=== PATIENT | female | born 1930 | race Caucasian/White ===

== ENCOUNTER 2019-05-08 14:09 | Observation (INO) | payer OTHER ==
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
[2019-05-08] MEDS ORDERED: morphine CARPU-JECT 2 MG/1 ML DISP.SYRIN IVPUSH ONE (17:09)
[2019-05-08 18:30] LABS: EPI CELLS 23.3 /HPF (0-5/HPF); HYALINE CASTS 19 /lpf (0-8); PH,URINE 6.5 (5.0-8.0); URINE APPEARANCE CLOUDY; URINE BACTERIA 1295.8 /hpf (NEGATIVE); URINE BILIRUBIN NEGATIVE (NEGATIVE); URINE COLOR YELLOW; URINE GLUCOSE (UA) NEGATIVE (NEGATIVE); URINE KETONE TRACE (NEGATIVE); URINE LEUK ESTERASE 1+ (NEGATIVE); URINE NITRITE NEGATIVE (NEGATIVE); URINE PROTEIN 3+ (NEGATIVE); URINE RBC 212 /hpf (0-4); URINE UROBILINOGEN 0.2 mg/dL (0.2-1.0); URINE WBC 16 /hpf (0-5)
[2019-05-08] MEDS ORDERED: MORPHINE SULFATE 2 MG/ML VIAL ONE (18:37)
[2019-05-08 19:05] LABS: BASO % 1.3 % (0-2.0); HEMATOCRIT 37.1 % (32.4-45.2); HEMOGLOBIN 12.9 GM/dL (10.7-15.3); LYMPH % 7.3 % (8-40); MCH 30.3 pg (25.7-33.7); MCHC 34.7 g/dl (32.0-36.0); MEAN CELL VOLUME 87.5 fl (80-96); MEAN PLT VOLUME 8.7 fl (7.5-11.1); MONO % 5.4 % (3.8-10.2); PLATELET COUNT 242 K/MM3 (134-434); RBC 4.24 M/mm3 (3.60-5.2); RDW 12.7 % (11.6-15.6); WHITE BLOOD COUNT 13.1 K/mm3 (4.0-10.0)
[2019-05-08 19:37] LABS: PLATELET ESTIMATE NORMAL
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
[2019-05-08 20:16] LABS: ALBUMIN 3.4 g/dl (3.4-5.0); BILIRUBIN,TOTAL 0.4 mg/dL (0.2-1); CALCIUM 9.2 mg/dL (8.5-10.1); CREATININE 0.8 mg/dL (0.55-1.3); POTASSIUM 4.1 mmol/L (3.5-5.1); TOT PROT 6.8 g/dl (6.4-8.2)
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
[2019-05-08 23:35] VITALS: BMI 27.2
[2019-05-08] MEDS: ACETAMINOPHEN 325 MG TABLET (FP) PO PRN (23:53)
[2019-05-09 05:43] VITALS: TEMP 98
[2019-05-09 06:42] LABS: HEMATOCRIT 35.3 % (32.4-45.2); HEMOGLOBIN 12.4 GM/dL (10.7-15.3); MCH 30.6 pg (25.7-33.7); MEAN CELL VOLUME 87.4 fl (80-96); MEAN PLT VOLUME 8.4 fl (7.5-11.1); PLATELET COUNT 212 K/MM3 (134-434); RBC 4.04 M/mm3 (3.60-5.2); RDW 12.8 % (11.6-15.6); WHITE BLOOD COUNT 7.4 K/mm3 (4.0-10.0)
[2019-05-09 06:55] LABS: BLOOD UREA NITROGEN 15.4 mg/dL (7-18); CALCIUM 8.9 mg/dL (8.5-10.1); CREATININE 0.7 mg/dL (0.55-1.3); POTASSIUM 3.7 mmol/L (3.5-5.1)
[2019-05-09] MEDS: oxyCODONE HCL 5 MG TABLET PO PRN ×2 (09:53→14:40)
[2019-05-09] MEDS: ACETAMINOPHEN 325 MG TABLET (FP) PO PRN (09:53)
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
[2019-05-09 11:04] VITALS: BP 146/58; PULSE 64
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
--- NOTE | 2019-05-09 20:21 | EKG ---
Test Reason : Blood Pressure : / mmHG Vent. Rate : 070 BPM Atrial Rate : 070 BPM P-R Int : 150 ms QRS Dur : 130 ms QT Int : 432 ms P-R-T Axes : 040 -72 023 degrees QTc Int : 466 ms POOR DATA QUALITY, INTERPRETATION MAY BE ADVERSELY AFFECTED NORMAL SINUS RHYTHM RIGHT BUNDLE BRANCH BLOCK LEFT ANTERIOR FASCICULAR BLOCK BIFASCICULAR BLOCK MINIMAL VOLTAGE CRITERIA FOR LVH, MAY BE NORMAL VARIANT SEPTAL INFARCT , AGE UNDETERMINED ABNORMAL ECG NO PREVIOUS ECGS AVAILABLE Confirmed by MD MICHELLE, PATRICIA ([id number]) on 05/09/2019 8:21:06 PM Referred By: Confirmed By:PATRICIA MARTINEZ MD
== END 2019-05-09 14:49 | disposition home or self-care (01) ==
LOC: EDBD 14:09 → JER 14:09 → MERGE 21:05 → JERBED 21:05 → J4W 23:21
PROVIDERS: ADMIT Internal Medicine; ATTEND Internal Medicine
PROC: 3E033NZ Introduction of Analgesics, Hypnotics, Sedatives into Peripheral Vein, Percutaneous Approach (ICD-10-PCS; principal; 2019-05-08)
DX: R77.8 Other specified abnormalities of plasma proteins (principal); S22.39XA Fracture of one rib, unspecified side, initial encounter for closed fracture; E78.5 Hyperlipidemia, unspecified; V43.52XA Car driver injured in collision with other type car in traffic accident, initial encounter; Y93.89 Activity, other specified; Y92.410 Unspecified street and highway as the place of occurrence of the external cause
CPT/HCPCS: 36415; 70450-TC; 71046-TC-FY; 71111-TC-FY; 71250-TC; 72125-TC; 72131-TC; 80048; 80053; 81003; 82550; 84484; 85025; 85027; 87086; 93005; 93010; 99285-25; G0378

== ENCOUNTER 2021-02-01 13:05 | Observation (INO) | payer OTHER ==
[2021-02-01 13:19] VITALS: BMI 24.4
[2021-02-01 14:38] LABS: BASO % 0.6 % (0-2.0); EOS % 0.9 % (0-4.5); HEMATOCRIT 38.4 % (32.4-45.2); HEMOGLOBIN 13.3 GM/dL (10.7-15.3); LYMPH % 28.6 % (8-40); MCH 30.2 pg (25.7-33.7); MCHC 34.7 g/dl (32.0-36.0); MEAN CELL VOLUME 86.9 fl (80-96); MEAN PLT VOLUME 8.2 fl (7.5-11.1); MONO % 6.3 % (3.8-10.2); NEUT % 63.6 % (42.8-82.8); PLATELET COUNT 244 10^3/uL (134-434); RBC 4.42 M/mm3 (3.60-5.2); RDW 13.7 % (11.6-15.6); WHITE BLOOD COUNT 6.4 K/mm3 (4.0-10.0)
[2021-02-01 15:06] LABS: CHLORIDE 108 mmol/L (98-107); SODIUM 140 mmol/L (136-145)
[2021-02-01 15:10] LABS: ALBUMIN 3.5 g/dl (3.4-5.0); ANION GAP 7 MMOL/L (8-16); CO2 24 mmol/L (21-32)
[2021-02-01 15:11] LABS: GLUCOSE,RANDOM 91 mg/dL (74-106)
[2021-02-01 15:14] LABS: CREATININE 0.7 mg/dL (0.55-1.3); SGOT/AST 28 U/L (15-37); SGPT/ALT 21 U/L (13-61)
[2021-02-01 15:15] LABS: BILIRUBIN,TOTAL 0.4 mg/dL (0.2-1); TOT PROT 7.2 g/dl (6.4-8.2)
[2021-02-01 15:16] LABS: ALK PHOS 64 U/L (45-117)
[2021-02-01] MEDS ORDERED: ASPIRIN 81 MG CHEWABLE TABLETS PO ONE (17:21)
[2021-02-01] MEDS ORDERED: ASPIRIN 81 MG CHEWABLE TABLETS ONE (19:10)
[2021-02-02] MEDS ORDERED: ASPIRIN 81 MG CHEWABLE TABLETS PO SCH (10:00)
[2021-02-02] MEDS ORDERED: DONEPEZIL HCL 5 MG TABLET (FP) PO SCH (10:00)
[2021-02-02] MEDS ORDERED: amLODIPine BESYLATE 2.5 MG TABLET (FP) PO SCH (10:00)
[2021-02-02 14:10] VITALS: BP 152/60; PULSE 58; TEMP 98.4
== END 2021-02-02 17:05 | disposition home health service (06) ==
LOC: JER 13:05 → JERBED 17:05 → J4S 20:39
PROVIDERS: ADMIT Internal Medicine; ATTEND Internal Medicine
DX: F03.90 Unspecified dementia, unspecified severity, without behavioral disturbance, psychotic disturbance, mood disturbance, and anxiety (principal); S22.39XA Fracture of one rib, unspecified side, initial encounter for closed fracture; G45.9 Transient cerebral ischemic attack, unspecified; R79.89 Other specified abnormal findings of blood chemistry; V89.2XXA Person injured in unspecified motor-vehicle accident, traffic, initial encounter; Y92.9 Unspecified place or not applicable; I69.398 Other sequelae of cerebral infarction; Z90.49 Acquired absence of other specified parts of digestive tract; R42 Dizziness and giddiness; R51.9 Headache, unspecified; E78.5 Hyperlipidemia, unspecified; M19.90 Unspecified osteoarthritis, unspecified site
CPT/HCPCS: 36415; 70450-TC; 70551-TC; 71045-TC-FY; 72131-TC; 80053; 82550; 84443; 84484; 85025; 93005; 93010; 97116-GP; 97161-GP; 99285-25; C9803; G0378; U0003; U0005

== ENCOUNTER 2021-09-25 19:40 | Emergency (ER) | payer OTHER ==
[2021-09-25 19:48] VITALS: PULSE 66; TEMP 98; BMI 25.2
[2021-09-25] MEDS ORDERED: ACETAMINOPHEN 500 MG TABLET (FP) PO ONE (20:25)
[2021-09-25] MEDS ORDERED: amLODIPine BESYLATE 2.5 MG TABLET (FP) PO ONE (20:26)
[2021-09-25] MEDS ORDERED: ACETAMINOPHEN 325 MG TABLET (FP) ONE (20:31)
[2021-09-25] MEDS ORDERED: amLODIPine BESYLATE 2.5 MG TABLET (FP) ONE (20:31)
[2021-09-25 21:05] LABS: BASO % 0.8 % (0-2.0); EOS % 1.2 % (0-4.5); HEMATOCRIT 36.7 % (32.4-45.2); HEMOGLOBIN 12.4 GM/dL (10.7-15.3); LYMPH % 29.8 % (8-40); MCH 29.8 pg (25.7-33.7); MCHC 33.8 g/dl (32.0-36.0); MEAN CELL VOLUME 88.1 fl (80-96); MEAN PLT VOLUME 8.5 fl (7.5-11.1); NEUT % 60.2 % (42.8-82.8); PLATELET COUNT 254 10^3/uL (134-434); RBC 4.16 M/mm3 (3.60-5.2); WHITE BLOOD COUNT 7.1 K/mm3 (4.0-10.0)
[2021-09-25 21:10] LABS: EPI CELLS 5 /uL (0-25.1); HYALINE CASTS 0 /uL (0-3.1); PH,URINE 5.5 (5.0-8.0); URINE APPEARANCE CLEAR; URINE BACTERIA 60 /uL (0-1359); URINE BILIRUBIN NEGATIVE (NEGATIVE); URINE COLOR YELLOW; URINE GLUCOSE (UA) NEGATIVE (NEGATIVE); URINE KETONE NEGATIVE (NEGATIVE); URINE LEUK ESTERASE TRACE (NEGATIVE); URINE NITRITE NEGATIVE (NEGATIVE); URINE PROTEIN NEGATIVE (NEGATIVE); URINE RBC 22 /uL (0-23.9); URINE WBC 14 /uL (0-25.8)
[2021-09-25 21:28] LABS: CALCIUM 8.9 mg/dL (8.5-10.1)
[2021-09-25 21:29] LABS: ALBUMIN 3.4 g/dl (3.4-5.0); BLOOD UREA NITROGEN 16.8 mg/dL (7-18)
[2021-09-25 21:32] LABS: CREATININE 0.7 mg/dL (0.55-1.3)
[2021-09-25 21:33] LABS: BILIRUBIN,TOTAL 0.4 mg/dL (0.2-1); TOT PROT 6.8 g/dl (6.4-8.2)
[2021-09-25 22:51] VITALS: BP 177/60
== END 2021-09-25 23:35 | disposition home or self-care (01) ==
LOC: JER 19:40
DX: R51.9 Headache, unspecified (principal); I10 Essential (primary) hypertension
CPT/HCPCS: 36415; 70450-TC; 71045-TC-FY; 80053; 81003; 84484; 85025; 93005; 93010; 99285-25

== ENCOUNTER 2022-01-12 20:22 | Inpatient (IN) | payer OTHER ==
[2022-01-12 20:27] VITALS: BMI 24.4
[2022-01-12 22:55] LABS: EPI CELLS 13 /uL (0-25.1); HYALINE CASTS 1 /uL (0-3.1); PH,URINE 5.5 (5.0-8.0); URINE APPEARANCE CLEAR; URINE BACTERIA 99 /uL (0-1359); URINE BILIRUBIN NEGATIVE (NEGATIVE); URINE COLOR YELLOW; URINE GLUCOSE (UA) NEGATIVE (NEGATIVE); URINE KETONE TRACE (NEGATIVE); URINE LEUK ESTERASE TRACE (NEGATIVE); URINE NITRITE NEGATIVE (NEGATIVE); URINE PROTEIN TRACE (NEGATIVE); URINE RBC 50 /uL (0-23.9); URINE WBC 19 /uL (0-25.8)
[2022-01-12 23:41] LABS: BASO % 0.4 % (0-2.0); EOS % 0.1 % (0-4.5); HEMATOCRIT 35.8 % (32.4-45.2); HEMOGLOBIN 12.5 GM/dL (10.7-15.3); LYMPH % 14.3 % (8-40); MCH 30.4 pg (25.7-33.7); MCHC 34.8 g/dl (32.0-36.0); MEAN CELL VOLUME 87.5 fl (80-96); MEAN PLT VOLUME 7.9 fl (7.5-11.1); MONO % 12.1 % (3.8-10.2); NEUT % 73.1 % (42.8-82.8); PLATELET COUNT 211 10^3/uL (134-434); RDW 13.7 % (11.6-15.6); WHITE BLOOD COUNT 5.4 K/mm3 (4.0-10.0)
[2022-01-12 23:48] LABS: INR 1.06 (0.83-1.09); PROTHROMBIN TIME (PATIENT) 12.2 SEC (9.7-13.0)
[2022-01-12] MEDS ORDERED: CEFTRIAXONE 1 GM in DEXTROSE 5%-WATER - 100 ML IVPB ONE (23:56)
[2022-01-13] MEDS ORDERED: CEFTRIAXONE 1 GM/50 ML BAG ONE ×2 (00:14→22:04)
[2022-01-13 00:15] LABS: ALBUMIN 3.4 g/dl (3.4-5.0); CALCIUM 8.8 mg/dL (8.5-10.1)
[2022-01-13 00:18] LABS: CREATININE 0.7 mg/dL (0.55-1.3)
[2022-01-13 00:20] LABS: BILIRUBIN,TOTAL 0.4 mg/dL (0.2-1); TOT PROT 6.9 g/dl (6.4-8.2)
[2022-01-13] MEDS ORDERED: ACETAMINOPHEN 325 MG TABLET (FP) PO PRN (00:35)
[2022-01-13] MEDS ORDERED: POLYETHYLENE GLYCOL (HEALTHYLAX) 3350 17 GM PACKET PO PRN (00:35)
[2022-01-13] MEDS ORDERED: ALBUTEROL SO4 HFA INHALER IH PRN (06:49)
[2022-01-13 07:44] LABS: BASO % 0.2 % (0-2.0); EOS % 0.1 % (0-4.5); HEMATOCRIT 35.3 % (32.4-45.2); HEMOGLOBIN 12.6 GM/dL (10.7-15.3); LYMPH % 16.5 % (8-40); MCH 31.2 pg (25.7-33.7); MCHC 35.8 g/dl (32.0-36.0); MEAN CELL VOLUME 87.1 fl (80-96); MEAN PLT VOLUME 8.1 fl (7.5-11.1); MONO % 13.5 % (3.8-10.2); NEUT % 69.7 % (42.8-82.8); PLATELET COUNT 199 10^3/uL (134-434); RBC 4.05 M/mm3 (3.60-5.2); RDW 13.5 % (11.6-15.6)
[2022-01-13 07:57] LABS: BLOOD UREA NITROGEN 12.6 mg/dL (7-18); MAGNESIUM 1.8 mg/dL (1.8-2.4)
[2022-01-13 07:59] LABS: CALCIUM 8.8 mg/dL (8.5-10.1)
[2022-01-13 08:02] LABS: CREATININE 0.7 mg/dL (0.55-1.3)
[2022-01-13 08:05] LABS: PHOSPHOROUS 3.3 mg/dL (2.5-4.9)
[2022-01-13] MEDS ORDERED: ASPIRIN COATED 81 MG TABLET.EC ONE (09:52)
[2022-01-13] MEDS ORDERED: amLODIPine BESYLATE 2.5 MG TABLET (FP) ONE (09:52)
[2022-01-13] MEDS ORDERED: ENOXAPARIN NA (PORCINE) 40 MG/0.4 ML DISP.SYRIN SQ ONE (09:53)
[2022-01-13] MEDS: ENOXAPARIN NA (PORCINE) 40 MG/0.4 ML DISP.SYRIN SQ SCH (10:04)
[2022-01-13] MEDS: ASPIRIN COATED 81 MG TABLET.EC PO SCH (10:04)
[2022-01-13] MEDS: CYANOCOBALAMIN 1,000 MCG TABLET (FP) PO SCH (10:04)
[2022-01-13] MEDS: amLODIPine BESYLATE 5 MG TABLET (FP) PO SCH (10:04)
[2022-01-13] MEDS ORDERED: DEXAMETHASONE 4 MG TABLET (FP) PO SCH (12:00)
[2022-01-13] MEDS ORDERED: DEXAMETHASONE 4 MG TABLET (FP) ONE (13:00)
[2022-01-13] MEDS ORDERED: REMDESIVIR 200 MG in SODIUM CHLORIDE 250 ML IVPB ONE (15:00)
[2022-01-13] MEDS ORDERED: DONEPEZIL HCL 5 MG TABLET (FP) ONE (22:03)
[2022-01-13] MEDS: traZODone HCL 50 MG TABLET (FP) PO SCH (22:32)
[2022-01-13] MEDS: DONEPEZIL HCL 5 MG TABLET (FP) PO SCH (22:32)
[2022-01-13] MEDS: CEFTRIAXONE 1 GM in DEXTROSE 5%-WATER - 50 ML IVPB SCH (23:35)
[2022-01-14] MEDS ORDERED: REMDESIVIR 200 MG in SODIUM CHLORIDE 250 ML IVPB ONE (10:00)
[2022-01-14] MEDS ORDERED: ASPIRIN COATED 81 MG TABLET.EC ONE (12:07)
[2022-01-14] MEDS ORDERED: amLODIPine BESYLATE 2.5 MG TABLET (FP) ONE (12:08)
[2022-01-14] MEDS ORDERED: ENOXAPARIN NA (PORCINE) 40 MG/0.4 ML DISP.SYRIN SQ ONE (12:08)
[2022-01-14] MEDS: ASPIRIN COATED 81 MG TABLET.EC PO SCH (14:00)
[2022-01-14] MEDS: amLODIPine BESYLATE 5 MG TABLET (FP) PO SCH (15:49)
[2022-01-14] MEDS: ENOXAPARIN NA (PORCINE) 40 MG/0.4 ML DISP.SYRIN SQ SCH (15:49)
[2022-01-14] MEDS: CYANOCOBALAMIN 1,000 MCG TABLET (FP) PO SCH (15:50)
[2022-01-14] MEDS ORDERED: DONEPEZIL HCL 5 MG TABLET (FP) ONE (21:05)
[2022-01-14] MEDS ORDERED: CEFTRIAXONE 1 GM/50 ML BAG ONE (21:05)
[2022-01-14] MEDS: DONEPEZIL HCL 5 MG TABLET (FP) PO SCH (21:45)
[2022-01-14] MEDS: traZODone HCL 50 MG TABLET (FP) PO SCH (21:45)
[2022-01-14] MEDS: CEFTRIAXONE 1 GM in DEXTROSE 5%-WATER - 50 ML IVPB SCH (21:45)
[2022-01-15] MEDS ORDERED: amLODIPine BESYLATE 2.5 MG TABLET (FP) ONE (08:40)
[2022-01-15] MEDS ORDERED: ASPIRIN COATED 81 MG TABLET.EC ONE (08:40)
[2022-01-15] MEDS ORDERED: ENOXAPARIN NA (PORCINE) 40 MG/0.4 ML DISP.SYRIN SQ ONE (08:41)
[2022-01-15] MEDS: amLODIPine BESYLATE 5 MG TABLET (FP) PO SCH (09:00)
[2022-01-15] MEDS: ENOXAPARIN NA (PORCINE) 40 MG/0.4 ML DISP.SYRIN SQ SCH (09:00)
[2022-01-15] MEDS: CYANOCOBALAMIN 1,000 MCG TABLET (FP) PO SCH (09:00)
[2022-01-15] MEDS: ASPIRIN COATED 81 MG TABLET.EC PO SCH (09:00)
[2022-01-15] MEDS: REMDESIVIR 100 MG in SODIUM CHLORIDE 250 ML IVPB SCH (10:50)
[2022-01-15] MEDS ORDERED: HALOPERIDOL LACTATE 5 MG/ML IM ONE (19:12)
[2022-01-15] MEDS ORDERED: HALOPERIDOL LACTATE 5 MG/ML ONE (19:17)
[2022-01-15] MEDS ORDERED: CEFTRIAXONE 1 GM/50 ML BAG ONE (22:26)
[2022-01-15] MEDS: CEFTRIAXONE 1 GM in DEXTROSE 5%-WATER - 50 ML IVPB SCH (22:28)
[2022-01-16] MEDS: traZODone HCL 50 MG TABLET (FP) PO SCH ×2 (01:21→22:11)
[2022-01-16 09:33] LABS: HEMATOCRIT 38.1 % (32.4-45.2); HEMOGLOBIN 13.6 GM/dL (10.7-15.3); MCH 30.7 pg (25.7-33.7); MCHC 35.8 g/dl (32.0-36.0); MEAN CELL VOLUME 85.6 fl (80-96); MEAN PLT VOLUME 8.1 fl (7.5-11.1); PLATELET COUNT 199 10^3/uL (134-434); RBC 4.45 M/mm3 (3.60-5.2); RDW 13.7 % (11.6-15.6); WHITE BLOOD COUNT 3.6 K/mm3 (4.0-10.0)
[2022-01-16 10:03] LABS: ALBUMIN 3.1 g/dl (3.4-5.0); BLOOD UREA NITROGEN 18.7 mg/dL (7-18); CALCIUM 8.3 mg/dL (8.5-10.1)
[2022-01-16 10:06] LABS: CREATININE 0.6 mg/dL (0.55-1.3)
[2022-01-16 10:07] LABS: BILIRUBIN,TOTAL 0.3 mg/dL (0.2-1); TOT PROT 6.6 g/dl (6.4-8.2)
[2022-01-16] MEDS: REMDESIVIR 100 MG in SODIUM CHLORIDE 250 ML IVPB SCH (11:16)
[2022-01-16] MEDS: CYANOCOBALAMIN 1,000 MCG TABLET (FP) PO SCH (11:16)
[2022-01-16] MEDS: ASPIRIN COATED 81 MG TABLET.EC PO SCH (11:16)
[2022-01-16] MEDS: ENOXAPARIN NA (PORCINE) 40 MG/0.4 ML DISP.SYRIN SQ SCH (11:16)
[2022-01-16] MEDS: amLODIPine BESYLATE 5 MG TABLET (FP) PO SCH (11:16)
[2022-01-16] MEDS ORDERED: DEXTROSE 5%-WATER - 50 ML IVPB ONE (22:03)
[2022-01-16] MEDS ORDERED: cefTRIAXone SODIUM 1 GM VIAL ONE (22:03)
[2022-01-16] MEDS: CEFTRIAXONE 1 GM in DEXTROSE 5%-WATER - 50 ML IVPB SCH (22:11)
[2022-01-17] MEDS: traZODone HCL 50 MG TABLET (FP) PO SCH (07:40)
[2022-01-17] MEDS ORDERED: BENZOCAINE/MENTH/CETYLPYRD CL 1 EACH LOZENGE MM PRN (08:06)
[2022-01-17] MEDS: ASPIRIN COATED 81 MG TABLET.EC PO SCH (10:58)
[2022-01-17] MEDS: amLODIPine BESYLATE 5 MG TABLET (FP) PO SCH (10:58)
[2022-01-17] MEDS: ENOXAPARIN NA (PORCINE) 40 MG/0.4 ML DISP.SYRIN SQ SCH (10:59)
[2022-01-17] MEDS: CYANOCOBALAMIN 1,000 MCG TABLET (FP) PO SCH (10:59)
[2022-01-17 11:00] VITALS: BP 134/60; PULSE 58; TEMP 97.9
== END 2022-01-17 15:14 | disposition home or self-care (01) | DRG 178 ==
LOC: JER 20:22 → UNDOADMIN 01-13 00:05 → JERBED 01-13 00:05 → J5S 01-16 01:08
PROVIDERS: ADMIT Hospitalist; ATTEND Internal Medicine
PROC: 3E0333Z Introduction of Anti-inflammatory into Peripheral Vein, Percutaneous Approach (ICD-10-PCS; principal; 2022-01-13)
PROC: XW033E5 Introduction of Remdesivir Anti-infective into Peripheral Vein, Percutaneous Approach, New Technology Group 5 (ICD-10-PCS; 2022-01-13)
DX: U07.1 COVID-19 (principal); N39.0 Urinary tract infection, site not specified; F03.91 Unspecified dementia, unspecified severity, with behavioral disturbance; I10 Essential (primary) hypertension; E78.5 Hyperlipidemia, unspecified; H54.40 Blindness, one eye, unspecified eye; R79.89 Other specified abnormal findings of blood chemistry
CPT/HCPCS: 36415; 70450-TC; 71045-TC-FY; 74176-TC; 80048; 80053; 81003; 82728; 83615; 83735; 84100; 84484; 85025; 85027; 85379; 85610; 85651; 85730; 86140; 87086; 93005; 93010; 97116-GP; 97161-GP; 99285-25; C9399; C9803-CS; U0003; U0005